=== PATIENT | female | born 1985 | race Caucasian/White ===

== ENCOUNTER 2017-12-27 14:31 | Inpatient (IN) | payer OTHER ==
[~2017-12-27 14:31] MED LIST: BUPIVACAINE HCL/PF 0.5% (5MG/ML) 10 ML VIAL IJ ONE
[2017-12-27 14:35] VITALS: BMI 36.7
--- NOTE | 2017-12-27 14:37 | PDOC ---
Rapid Medical Evaluation Time Seen by Provider: 12/27/17 14:32 Medical Evaluation: Allergies Allergy/AdvReac Type Severity Reaction Status Date / Time No Known Allergies Allergy Verified 05/18/12 19:37 12/27/17 14:32 I have performed a brief in-person evaluation of this patient. The patient presents with a chief complaint of: right lower quadrant pain with fever and change in bowels; constipation Denies nausea, dysuria, vomiting or diarrhea. Sent from urgent care to rule out appendicitis Pertinent physical exam findings: NAD Lungs clear bilaterally heart s1s2 abdomen tenderness to right lower quadrant + hypoactive bowels I have ordered the following: urine pt, labs ordered The patient will proceed to the ED for further evaluation. 12/27/17 14:37 Discharge Disposition - Referrals Referrals: Yolette Atkins MD [Primary Care Provider] - - Patient Instructions - Post Discharge Activity
[2017-12-27 15:21] LABS: BASO % 0.5 % (0-2.0); EOS % 0.2 % (0-4.5); HEMATOCRIT 37.7 % (32.4-45.2); HEMOGLOBIN 12.7 GM/dL (10.7-15.3); LYMPH % 6.5 % (8-40); MCH 29.4 pg (25.7-33.7); MCHC 33.8 g/dl (32.0-36.0); MEAN PLT VOLUME 9.1 fl (7.5-11.1); MONO % 9.7 % (3.8-10.2); NEUT % 83.1 % (42.8-82.8); PLATELET COUNT 295 K/MM3 (134-434); RBC 4.33 M/mm3 (3.60-5.2); RDW 13.7 % (11.6-15.6); WHITE BLOOD COUNT 17.6 K/mm3 (4.0-10.0)
[2017-12-27] MEDS ORDERED: ACETAMINOPHEN 1000 MG/100 ML VIAL (NON FORMULARY) IVPB ONE ×3 (15:36→22:39)
[2017-12-27] MEDS ORDERED: SODIUM CHLORIDE 1,000 ML IV STA (15:36)
[2017-12-27 15:37] LABS: INR 1.18 (0.82-1.09); PROTHROMBIN TIME (PATIENT) 13.3 SEC (9.98-11.88)
[2017-12-27 15:40] LABS: ACTIVATED PTT 29.2 SECONDS (26.9-34.4)
[2017-12-27] MEDS ORDERED: ACETAMINOPHEN INJECTION 100 ML IVPB ONE (15:47)
--- NOTE | 2017-12-27 15:53 | PDOC ---
History of Present Illness <Garrett Greene - Last Filed: 12/27/17 18:03> - History of Present Illness Initial Comments: 12/27/17 15:47 31 F with no PMH presents to ED with RLQ pain and fevers x 2 days. Pt endorses some nausea without vomiting. Denies diarrhea/constipation. Took miralax today without relief of her symptoms. Pt denies vaginal discharge/bleeding. Is not sexually active. Pt states that she has pain in her abdomen when she urinates but denies foul smelling or dark urine. Pt has prior , no other surgeries. <Jerrell Altman - Last Filed: 12/27/17 18:14> - General Chief Complaint: Pain Stated Complaint: r/o appy ABD PAIN Time Seen by Provider: 12/27/17 14:32 Past History <Garrett Greene - Last Filed: 12/27/17 18:03> - Past Medical History COPD: No - Suicide/Smoking/Psychosocial Hx Smoking Status: No Smoking History: Never smoked Number of Cigarettes Smoked Daily: 0 Information on smoking cessation initiated: No Hx Alcohol Use: No Drug/Substance Use Hx: No Substance Use Type: None <Jerrell Altman - Last Filed: 12/27/17 18:14> - Past Medical History Allergies/Adverse Reactions: Allergies Allergy/AdvReac Type Severity Reaction Status Date / Time No Known Allergies Allergy Verified 12/27/17 14:32 Home Medications: Ambulatory Orders NK [No Known Home Medication] 12/27/17 Review of Systems - Review of Systems Comments:: 12/27/17 15:50 "GENERAL/CONSTITUTIONAL: No fever or chills. No weakness. HEAD, EYES, EARS, NOSE AND THROAT: No change in vision. No ear pain or discharge. No sore throat. CARDIOVASCULAR: No chest pain or shortness of breath. RESPIRATORY: No cough, wheezing, or hemoptysis. GASTROINTESTINAL: +RLQ pain, + nausea, no vomiting, diarrhea or constipation. GENITOURINARY: No dysuria, frequency, or change in urination. MUSCULOSKELETAL: No joint or muscle swelling or pain. No neck or back pain. SKIN: No rash NEUROLOGIC: No headache, vertigo, loss of consciousness, or change in strength/ sensation. ENDOCRINE: No increased thirst. No abnormal weight change. HEMATOLOGIC/LYMPHATIC: No anemia, easy bleeding, or history of blood clots. ALLERGIC/IMMUNOLOGIC: No hives or skin allergy. " <Jerrell Altman - Last Filed: 12/27/17 18:14> *Physical Exam - Vital Signs Last Vital Signs Temp Pulse Resp BP Pulse Ox 100 F H 111 H 18 140/79 100 12/27/17 14:33 12/27/17 14:33 12/27/17 14:33 12/27/17 14:33 12/27/17 14:33 <Garrett Greene - Last Filed: 12/27/17 18:03> - Vital Signs Last Vital Signs Temp Pulse Resp BP Pulse Ox 100 F H 111 H 18 140/79 100 12/27/17 14:33 12/27/17 14:33 12/27/17 14:33 12/27/17 14:33 12/27/17 14:33 - Physical Exam Comments: 12/27/17 15:51 "GENERAL: Awake, alert, and fully oriented, in no acute distress HEAD: No signs of trauma EYES: PERRLA, EOMI, sclera anicteric, conjunctiva clear ENT: Auricles normal inspection, hearing grossly normal, nares patent, oropharynx clear without exudates. Moist mucosa NECK: Nontender, no stepoffs, Normal ROM, supple, no lymphadenopathy, JVD, or masses LUNGS: Breath sounds equal, clear to auscultation bilaterally. No wheezes, and no crackles HEART: Regular rate and rhythm, normal S1 and S2, no murmurs, rubs or gallops ABDOMEN: + RLQ tenderness, + rebound, no guarding EXTREMITIES: Normal range of motion, no edema. No clubbing or cyanosis. No cords, erythema, or tenderness NEUROLOGICAL: Cranial nerves II through XII intact. 5/5 strength and sensation in all extremities, Normal speech, normal gait, normal cerebellar function SKIN: Warm, Dry, normal turgor, no rashes or lesions noted. : no CMT, no adnexal masses, no abnormal discharge/bleeding <Jerrell Altman - Last Filed: 12/27/17 18:14> ED Treatment Course - LABORATORY CBC & Chemistry Diagram: 12/27/17 15:15 12/27/17 15:15 - ADDITIONAL ORDERS Additional order review: Laboratory Results 12/27/17 12/27/17 12/27/17 17:49 16:00 15:15 PT with INR INR PTT (Actin FS) Sodium 136 Potassium 4.1 Chloride 101 Carbon Dioxide 23 Anion Gap 12 BUN 8 Creatinine 0.7 Creat Clearance w eGFR > 60 Random Glucose 88 Calcium 9.3 Total Bilirubin 0.6 AST 16 ALT 30 Alkaline Phosphatase 104 Total Protein 8.1 Albumin 3.9 Urine Color Yellow Urine Appearance Clear Urine pH 5.0 Ur Specific [place] 1.024 Urine Protein Negative Urine Glucose (UA) Negative Urine Ketones Trace H Urine Blood 1+ H Urine Nitrite Negative Urine Bilirubin Negative Urine Urobilinogen Negative Ur Leukocyte Esterase Negative Urine HCG, Qual Negative 12/27/17 15:15 PT with INR 13.30 H INR 1.18 H PTT (Actin FS) 29.2 Sodium Potassium Chloride Carbon Dioxide Anion Gap BUN Creatinine Creat Clearance w eGFR Random Glucose Calcium Total Bilirubin AST ALT Alkaline Phosphatase Total Protein Albumin Urine Color Urine Appearance Urine pH Ur Specific [place] Urine Protein Urine Glucose (UA) Urine Ketones Urine Blood Urine Nitrite Urine Bilirubin Urine Urobilinogen Ur Leukocyte Esterase Urine HCG, Qual 12/27/17 15:15 RBC 4.33 MCV 87.0 MCHC 33.8 RDW 13.7 MPV 9.1 Neutrophils % 83.1 H Lymphocytes % 6.5 L Monocytes % 9.7 Eosinophils % 0.2 Basophils % 0.5 - RADIOLOGY Radiograph Interpretation: 12/27/17 18:03 EXAM#: TYPE/EXAM: RESULT: [id number] CT/ABDOMEN PELVIS CT WITH CONTR HISTORY PROVIDED: Right lower quadrant pain. Sequential axial images were obtained from the domes of the diaphragms through the symphysis pubis following the administration of intravenous contrast material. The lung bases are clear. There is a thick-walled tubular structure within the right lower quadrant consistent with an inflamed appendix. There is a moderate degree of inflammatory stranding within the adjacent mesenteric fat. No discrete fluid collection consistent with an abscess is noted. There are some prominent mesenteric lymph nodes in the right lower quadrant. The liver, spleen, pancreas, adrenal glands and kidneys demonstrate no significant abnormalities. The gallbladder is clear. There is no evidence of intra-abdominal or retroperitoneal lymphadenopathy or fluid collections. Examination of the pelvis demonstrates an involuting cyst of the right ovary with a small amount of free fluid within the cul-de-sac. There is no evidence of pelvic masses, fluid collections or lymphadenopathy. There is no evidence of acute bony pathology. IMPRESSION: Findings consistent with acute appendicitis without abscess formation. Clinical correlation and follow-up recommended. Please see above discussion. Reported By: Regan Ramirez MD - Medications Given in the ED: ED Medications Discontinued Medications Generic Name Dose Route Start Last Admin Trade Name Isaías PRN Reason Stop Dose Admin Acetaminophen 1,000 mg 12/27/17 15:36 12/27/17 16:02 Ofirmev Injection - IVPB 12/27/17 15:37 1,000 mg ONCE ONE Administration Sodium Chloride 1,000 mls @ 1,000 mls/hr 12/27/17 15:36 12/27/17 15:45 Normal Saline - IV 12/27/17 16:35 1,000 mls/hr ASDIR STA Administration <Garrett Greene - Last Filed: 12/27/17 18:03> - LABORATORY CBC & Chemistry Diagram: 12/27/17 15:15 12/27/17 15:15 - ADDITIONAL ORDERS Additional order review: Laboratory Results 12/27/17 15:15 PT with INR 13.30 H INR 1.18 H PTT (Actin FS) 29.2 12/27/17 15:15 RBC 4.33 MCV 87.0 MCHC 33.8 RDW 13.7 MPV 9.1 Neutrophils % 83.1 H Lymphocytes % 6.5 L Monocytes % 9.7 Eosinophils % 0.2 Basophils % 0.5 - RADIOLOGY Radiology Studies Ordered: Category Date Time Status ABDOMEN & PELVIS CT WITH CONTR [CT] Stat CT Scan 12/27/17 15:36 Ordered <Ou,Jerrell - Last Filed: 12/27/17 18:14> Medical Decision Making - Medical Decision Making 12/27/17 15:51 31 F with fever and RLQ abdominal pain, concerning for acute appy. Pt also complaining of increased pain with urination. Will check for UTI. - Labs, UA, UPT - CTAP - IVF, tylenol 12/27/17 17:56 CT with acute appy. Dr. Marrero aware, will follow, tentatively plan for OR tomorrow 12/27/17 18:14 Zosyn ordered Pt admitted to hospitalist <Ou,Jerrell - Last Filed: 12/27/17 18:14> *DC/Admit/Observation/Transfer - Attestations Scribe Attestion: 12/27/17 18:04 Documentation prepared by Garrett Greene, acting as medical records coder for Jerrell Altman MD. <Garrett Greene - Last Filed: 12/27/17 18:03> - Discharge Dispostion Admit: Yes - Attestations Physician Attestion: 12/27/17 17:57 I, Dr. Jerrell Altman MD, attest that this document has been prepared under my direction and personally reviewed by me in its entirety. I further attest, that it accurately reflects all work, treatment, procedures and medical decision -making performed by me. <Jerrell Altman - Last Filed: 12/27/17 18:14> Diagnosis at time of Disposition: Acute appendicitis - Referrals Referrals: Yolette Atkins MD [Primary Care Provider] - - Patient Instructions - Post Discharge Activity
[2017-12-27 15:57] LABS: ALBUMIN 3.9 g/dl (3.4-5.0); ALK PHOS 104 U/L (45-117); ANION GAP 12 (8-16); BILIRUBIN,TOTAL 0.6 mg/dL (0.2-1.0); BLOOD UREA NITROGEN 8 mg/dL (7-18); CALCIUM 9.3 mg/dL (8.5-10.1); CHLORIDE 101 mmol/L (98-107); CO2 23 mmol/L (21-32); CREATININE 0.7 mg/dL (0.55-1.02); GLUCOSE,RANDOM 88 mg/dL (74-106); POTASSIUM 4.1 mmol/L (3.5-5.1); SGOT/AST 16 U/L (15-37); SGPT/ALT 30 U/L (12-78); SODIUM 136 mmol/L (136-145); TOT PROT 8.1 g/dl (6.4-8.2)
[2017-12-27 17:56] LABS: URINE APPEARANCE CLEAR; URINE BILIRUBIN NEGATIVE (<2.0 mg/dL); URINE BLOOD 1+ (NEGATIVE); URINE COLOR YELLOW; URINE GLUCOSE (UA) NEGATIVE (NEGATIVE); URINE KETONE TRACE (NEGATIVE); URINE LEUK ESTERASE NEGATIVE (NEGATIVE); URINE NITRITE NEGATIVE (NEGATIVE); URINE PROTEIN NEGATIVE (NEGATIVE); URINE UROBILINOGEN NEGATIVE mg/dL (0.2-1.0)
[2017-12-27] MEDS ORDERED: PIPERACILLIN/TAZOB 4.5 GM 4.5 GM/100 ML BAG IVPB ONE ×2 (17:56→19:06)
[2017-12-27 18:01] LABS: EPI CELLS RARE /HPF (FEW); URINE BACTERIA RARE /hpf (NONE SEEN); URINE MUCUS MODERATE
[2017-12-27] MEDS ORDERED: SODIUM CHLORIDE 1,000 ML IV SCH (18:15)
--- NOTE | 2017-12-27 18:17 | CONSULT ---
Consult Consult Specialty:: general surgery Referred by:: swetha martinez MD Reason for Consultation:: abdominal pain - History of Present Illness Chief Complaint: abdominal pain History of Present Illness: 31 yo female with PMH obesity presents with 2 days of right lower quadrant abdominal pain. She denied nausea and vomiting. She reports some nausea without vomiting. Denies diarrhea/constipation. Took miralax today without relief of her symptoms. Pt denies vaginal discharge/bleeding. Is not sexually active. Pt states that she has pain in her abdomen when she urinates but denies foul smelling or dark urine. Pt has prior , no other surgeries. she denies similar episodes of similar pain. We were asked to assess. - History Source History Provided By: Patient, Medical Record Limitations to Obtaining History: No Limitations - Past Medical History Additional Medical History: obesity - Past Surgical History Past Surgical History: Yes: - Alcohol/Substance Use Hx Alcohol Use: No - Smoking History Smoking history: Never smoked Aproximately how many cigarettes per day: 0 - Social History Usual Living Arrangement: With Spouse History of Recent Travel: No Home Medications - Allergies Allergies/Adverse Reactions: Allergies Allergy/AdvReac Type Severity Reaction Status Date / Time No Known Allergies Allergy Verified 12/27/17 14:32 - Home Medications Home Medications: Ambulatory Orders NK [No Known Home Medication] 12/27/17 Review of Systems - Review of Systems Constitutional: denies: Chills, Fever, Unintentional Wgt. Loss Eyes: denies: Blind Spots, Recent Change in Vision HENT: denies: Difficult Swallowing, Throat Pain Neck: denies: Pain on Movement, Tenderness Cardiovascular: denies: Chest Pain, Palpitations Respiratory: denies: Cough, SOB Gastrointestinal: reports: Abdominal Pain. denies: Diarrhea, Indigestion, Vomiting Genitourinary: denies: Discharge, Dysuria Musculoskeletal: denies: Muscle Pain, Muscle Weakness Integumentary: denies: Lesions, Lump, Rash Neurological: denies: Seizure, Syncope Endocrine: denies: Unexplained Weight Gain, Unexplained Weight Loss Hematology/Lymphatic: denies: Easily Bruised, Excessive Bleeding Psychiatric: denies: Anxiety, Depression Physical Exam Vital Signs: Vital Signs Temperature 100 F H 12/27/17 14:33 Pulse Rate 111 H 12/27/17 14:33 Respiratory Rate 18 12/27/17 14:33 Blood Pressure 140/79 12/27/17 14:33 O2 Sat by Pulse Oximetry (%) 100 12/27/17 14:33 Vital Signs Period Temp Pulse Resp BP Sys/Harris Pulse Ox Last 24 Hr 100 F 111 18 140/79 100 Constitutional: Yes: Well Nourished, No Distress, Calm, Obese Eyes: Yes: Conjunctiva Clear, EOM Intact HENT: Yes: Atraumatic, Normocephalic Neck: Yes: Supple, Trachea Midline Cardiovascular: Yes: Regular Rate and Rhythm, S1, S2. No: Murmur Respiratory: Yes: Regular, CTA Bilaterally Gastrointestinal: Yes: Normal Bowel Sounds, Soft, Abdomen, Obese, Tenderness ( tender in RLQ, will some voluntary guarding and localized rebound), Tenderness, Rebound. No: Hernia, Vomiting ...Rectal Exam: Yes: Sphincter Tone Normal. No: Mass Renal/: No: CVA Tenderness - Left, CVA Tenderness - Right Breast(s): No: Nipple Inversion, Skin Changes Musculoskeletal: No: Muscle Pain, Muscle Weakness Extremities: No: Cool, Cyanosis Edema: No Peripheral Pulses WNL: Yes Integumentary: No: Jaundice, Rash Neurological: Yes: Alert, Oriented Psychiatric: Yes: Alert, Oriented Labs: CBC, BMP 12/27/17 15:15 12/27/17 15:15 Imaging - Results Cat Scan: Report Reviewed, Image Reviewed (acute appendicitis) Problem List - Problems (1) Obesity (BMI 30-39.9) Assessment/Plan: NPO and IVF hydration empiric IV antibiotics adequate analgesia Plan for OR for Laparoscopic Appendectomy - Discussed with patient risks, benefits and alternatives of laparoscopic possible open appendectomy, including but not limited to bleeding, infection, injury to adjacent structures, leak or injury, intraabdominal abscess, need for further procedures, ; alternatives include antibiotics, delayed or no surgery - risks of this include failure of nonoperative therapy, perforation, sepsis, recurrence, . Patient desires to proceed with operation - will take to OR for above. Informed consent signed for same. Code(s): E66.9 - OBESITY, UNSPECIFIED (2) Leukocytosis (leucocytosis) Code(s): D72.829 - ELEVATED WHITE BLOOD CELL COUNT, UNSPECIFIED Qualifiers: Leukocytosis type: lymphocytosis Qualified Code(s): D72.820 - Lymphocytosis (symptomatic) (3) Abdominal pain in female Code(s): R10.9 - UNSPECIFIED ABDOMINAL PAIN (4) Acute appendicitis Code(s): K35.80 - UNSPECIFIED ACUTE APPENDICITIS Qualifiers: Acute appendicitis type: with localized peritonitis Qualified Code(s): K35.3 - Acute appendicitis with localized peritonitis
--- NOTE | 2017-12-27 18:25 | OP ---
Operative Note - Note: Operative Date: 12/27/17 Pre-Operative Diagnosis: acute appendicitis with localized peritonitis Operation: laparoscopic appendectomy Findings: inflamed appendix RLQ with matted omentum. infected peel debrided from sidewall Post-Operative Diagnosis: Same as Pre-op Surgeon: Paul Marrero Anesthesiologist/REGISTERED RESPIRATORY TECHNICIAN: Montrell Robledo Anesthesia: General, Local (8ml 0.5% marcaine ) Specimens Removed: appendix Estimated Blood Loss (mls): 25 Drains, Volume Out (mls): 400 (vincent (removed)) Fluid Volume Replaced (mls): 1,200 Operative Report Dictated: Yes
[2017-12-27] MEDS ORDERED: morphine SULFATE 4 MG/ML VIAL IVPUSH PRN ×2 (18:30→22:39)
[2017-12-27] MEDS ORDERED: LACTATED RINGERS SOLUTION 1,000 ML/1,000 ML INFUS.BAG IV SCH (18:30)
[2017-12-27] MEDS ORDERED: BENZOIN/ALOE VERA/STORAX/TOLU 58 ML BOTTLE ONE (19:27)
[2017-12-27] MEDS ORDERED: BUPIVACAINE HCL/PF 0.5% (5MG/ML) 10 ML VIAL ONE (19:27)
[2017-12-27] MEDS ORDERED: MIDAZOLAM HCL 2 MG/2 ML SINGLE DOSE VIAL ONE (19:59)
[2017-12-27] MEDS ORDERED: SUCCINYLCHOLINE CHLORIDE 200 MG/10 ML VIAL ONE (19:59)
[2017-12-27] MEDS ORDERED: PROPOFOL 20 ML ONE (19:59)
[2017-12-27] MEDS ORDERED: ROCURONIUM BROMIDE 50 MG/5 ML VIAL ONE (19:59)
[2017-12-27] MEDS ORDERED: SODIUM CHLORIDE 0.9% P/F 10 ML VIAL IJ ONE (20:02)
[2017-12-27] MEDS ORDERED: KETOROLAC TROMETHAMINE 30 MG/1 ML VIAL ONE (20:02)
[2017-12-27] MEDS ORDERED: DEXAMETHASONE SOD PHOSPHATE 4 MG/1 ML VIAL ONE (20:02)
[2017-12-27] MEDS ORDERED: LIDOCAINE HCL/PF 2% SDV 5ML VIAL ONE (20:02)
--- NOTE | 2017-12-27 20:59 | HP ---
CHIEF COMPLAINT: RLQ pain x2 days PCP: Dr. Atkins HISTORY OF PRESENT ILLNESS: 31 yo w/ no pmh presenting to ED with 2 days of abdominal distension and pain, localizing to RLQ yesterday, in the setting of subjective fevers for last two days. Pt endorses constipation and decrease appetite for over past two days, took miralax today with no resolution of symptoms. Endorses occasional bout of nausea, but no episode of emesis. Denies any chills, EGAN, throat pain, nasal congestion, sinus pain, cp, sob, cough, rashes, peripheral edema, hematochezia, melena, diarrhea, hematuria. Endorses occasional pain in abdomen with straining during urination. No prior GI symptoms or hx of IBD, SBO, constipation. ER course was notable for: (1)WBC 17.6, temp 100 (2)CT abdomen/pelvis + for appendicitis (3)General surgery consulted Recent Travel: no PAST MEDICAL HISTORY: None PAST SURGICAL HISTORY: Prior C section Social History: Smoking: no Alcohol: no Drugs: no Family History: noncontributory Allergies No Known Allergies Allergy (Verified 12/27/17 14:32) HOME MEDICATIONS: Home Medications Medication Instructions Recorded NK [No Known Home Medication] 12/27/17 REVIEW OF SYSTEMS CONSTITUTIONAL: fever, loss of appetite, Absent: chills, diaphoresis, generalized weakness, malaise, weight change HEENT: Absent: rhinorrhea, nasal congestion, throat pain, throat swelling, difficulty swallowing, mouth swelling, ear pain, eye pain, visual changes CARDIOVASCULAR: Absent: chest pain, syncope, palpitations, irregular heart rate, lightheadedness , peripheral edema RESPIRATORY: Absent: cough, shortness of breath, dyspnea with exertion, orthopnea, wheezing, stridor, hemoptysis GASTROINTESTINAL: abdominal pain, abdominal distension, constipation, Absent: nausea, vomiting, diarrhea, melena, hematochezia GENITOURINARY: Absent: dysuria, frequency, urgency, hesitancy, hematuria, flank pain, genital pain MUSCULOSKELETAL: Absent: myalgia, arthralgia, joint swelling, back pain, neck pain ENDOCRINE: Absent: unexplained weight gain, unexplained weight loss, heat intolerance, cold intolerance PHYSICAL EXAMINATION Vital Signs - 24 hr Intake & Output 12/25/17 12/26/17 12/27/17 12/28/17 23:59 23:59 23:59 23:59 Intake Total 2450 Output Total 425 Balance 2024 Weight 97.069 kg 12/27/17 12/27/17 14:33 19:30 Temperature 100 F H 98.4 F Pulse Rate 111 H Pulse Rate [ 97 H Apical] Respiratory 18 16 Rate Blood Pressure 140/79 Blood Pressure 114/75 [Right Arm] O2 Sat by Pulse 100 99 Oximetry (%) GENERAL: Young woman, a&ox3, in NAD HEAD: Normal with no signs of trauma. EYES: Pupils equal, round and reactive to light, extraocular movements intact, sclera anicteric, conjunctiva clear. No lid lag. EARS, NOSE, THROAT: Ears normal, nares patent, oropharynx clear without exudates. Moist mucous membranes. NECK: Normal range of motion, supple without lymphadenopathy, JVD, or masses. LUNGS: Breath sounds equal, clear to auscultation bilaterally. No wheezes, and no crackles. No accessory muscle use. HEART: Regular rate and rhythm, normal S1 and S2 without murmur, rub or gallop. ABDOMEN: Soft, nontender, not distended, normoactive bowel sounds, no guarding, no rebound, no masses. No hepatomegaly or splenomegaly. MUSCULOSKELETAL: Normal range of motion at all joints. No bony deformities or tenderness. No CVA tenderness. UPPER EXTREMITIES: 2+ pulses, warm, well-perfused. No cyanosis. No clubbing. No peripheral edema. LOWER EXTREMITIES: 2+ pulses, warm, well-perfused. No calf tenderness. No peripheral edema. NEUROLOGICAL: Cranial nerves II-XII intact. Normal speech. Normal gait. PSYCHIATRIC: Cooperative. Good eye contact. Appropriate mood and affect. SKIN: Warm, dry, normal turgor, no rashes or lesions noted, normal capillary refill. Laboratory Results - last 24 hr CBC, BMP 12/27/17 15:15 12/27/17 15:15 12/27/17 12/27/17 12/27/17 15:15 15:15 15:15 WBC 17.6 H RBC 4.33 Hgb 12.7 Hct 37.7 MCV 87.0 MCH 29.4 MCHC 33.8 RDW 13.7 Plt Count 295 MPV 9.1 Neutrophils % 83.1 H Lymphocytes % 6.5 L Monocytes % 9.7 Eosinophils % 0.2 Basophils % 0.5 PT with INR 13.30 H INR 1.18 H PTT (Actin FS) 29.2 Sodium 136 Potassium 4.1 Chloride 101 Carbon Dioxide 23 Anion Gap 12 BUN 8 Creatinine 0.7 Creat Clearance w eGFR > 60 Random Glucose 88 Calcium 9.3 Total Bilirubin 0.6 AST 16 ALT 30 Alkaline Phosphatase 104 Total Protein 8.1 Albumin 3.9 Lipase Urine Color Urine Appearance Urine pH Ur Specific [place] Urine Protein Urine Glucose (UA) Urine Ketones Urine Blood Urine Nitrite Urine Bilirubin Urine Urobilinogen Ur Leukocyte Esterase Urine WBC (Auto) Urine RBC (Auto) Ur Epithelial Cells Urine Bacteria Urine Mucus Urine HCG, Qual 12/27/17 12/27/17 12/27/17 16:00 17:44 17:49 WBC RBC Hgb Hct MCV MCH MCHC RDW Plt Count MPV Neutrophils % Lymphocytes % Monocytes % Eosinophils % Basophils % PT with INR INR PTT (Actin FS) Sodium Potassium Chloride Carbon Dioxide Anion Gap BUN Creatinine Creat Clearance w eGFR Random Glucose Calcium Total Bilirubin AST ALT Alkaline Phosphatase Total Protein Albumin Lipase 80 Urine Color Yellow Urine Appearance Clear Urine pH 5.0 Ur Specific [place] 1.024 Urine Protein Negative Urine Glucose (UA) Negative Urine Ketones Trace H Urine Blood 1+ H Urine Nitrite Negative Urine Bilirubin Negative Urine Urobilinogen Negative Ur Leukocyte Esterase Negative Urine WBC (Auto) 93 Urine RBC (Auto) 17 Ur Epithelial Cells Rare Urine Bacteria Rare Urine Mucus Moderate Urine HCG, Qual Negative urine culture pending CT abdomen/pelvis w/ contrast 12/27 - IMPRESSION: Findings consistent with acute appendicitis without abscess formation. Clinical correlation and follow-up recommended. Please see above discussion. ASSESSMENT/PLAN: 31 yo w/ no pmh presenting to ED with 2 days of abdominal distension and pain, localizing to RLQ yesterday, in the setting of subjective fevers for last two days, now with CT-confirmed appendicitis #Acute appendicitis - confirmed on CT scan - NPO -> clears after surgery - Pain control -> tylenol, morphine - IVFs - General surgery consulted - pt for lap ross w/ dr. sharpe this evening - post-op care per surgical team - changan for N/V - f/u op report regarding intra-abdominal involvement - Trend fever, WBC curve - Consider abx coverage post-op #Constipation - Senna, colace - monitor on PO feeds PPX EAM FEN LR Daily lytes Clears post-op Plan discussed with attending, Dr. Willam Pascual, PGY1 Visit type - Emergency Visit Emergency Visit: Yes ED Registration Date: 12/27/17 Care time: The patient presented to the Emergency Department on the above date and was hospitalized for further evaluation of their emergent condition. - New Patient This patient is new to me today: Yes Date on this admission: 12/28/17 - Critical Care Critical Care patient: No Hospitalist Screening - Colonoscopy Questionnaire Colonoscopy Questionnaire: Colonoscopy Questionnaire - Patient: 50 - 75 years old and never had a screening colonoscopy: Unknown History of colon or rectal polyps, or CA: Unknown History of IBD, Crohn's disease or UC: Unknown History of abdominal radiation therapy as a child: Unknown - Relative: 1 with colon or rectal CA, or polyps at age 60 or younger: Unknown Colon or rectal CA diagnosed at age 45 or younger: Unknown Multiple relatives with colon or rectal CA: Unknown - Outcome: Screening Result: Negative Screen
[2017-12-27] MEDS ORDERED: NEOSTIGMINE METHYLSULFATE 0.5 MG/ML - 10 ML MDV ONE (21:16)
[2017-12-27] MEDS ORDERED: GLYCOPYRROLATE 0.2 MG/1 ML VIAL ONE (21:16)
[2017-12-27] MEDS ORDERED: BUPIVACAINE HCL/PF 0.5% (5MG/ML) 10 ML VIAL IJ ONE (21:30)
[2017-12-27] MEDS ORDERED: ONDANSETRON 4 MG/2 ML VIAL IVPUSH PRN (21:52)
[2017-12-27] MEDS ORDERED: KETOROLAC TROMETHAMINE 30 MG/1 ML VIAL IVPUSH ONE ×2 (21:52→22:39)
[2017-12-27] MEDS: LACTATED RINGERS SOLUTION 1,000 ML/1,000 ML INFUS.BAG IV SCH (23:00)
[2017-12-28] MEDS ORDERED: ONDANSETRON 4 MG/2 ML VIAL IVPUSH PRN (00:17)
--- NOTE | 2017-12-28 02:00 | PN ---
Teaching Attending Note Name of Resident: Zak Pascual ATTENDING PHYSICIAN STATEMENT I saw and evaluated the patient. I reviewed the resident's note and discussed the case with the resident. I agree with the resident's findings and plan as documented. SUBJECTIVE: 31F with RLQ abd pain found to have acute appendicitis now s/p lab appy she is resting comfortably without complaints OBJECTIVE: NAD AAOx3 Abd soft, NTND, laparscopic incisions dressed WBC 17.5 ASSESSMENT AND PLAN: 31F presented with acute appendicitis now s/p lap Appy pain control IVF start CLD in morning Abx postop usually not needed if uncomplicated, follow up with surgery regarding this
--- NOTE | 2017-12-28 02:05 | PN ---
Progress Note, Physician Chief Complaint: abdominal pain History of Present Illness: 31 yo female with PMH obesity presents with 2 days of right lower quadrant abdominal pain. s/p laparoscopic appendectomy, no acute events overnight, febrile low grade 100.2 - Current Medication List Current Medications: Active Medications Acetaminophen (Ofirmev Injection -) 1,000 mg IVPB Q6H PRN PRN Reason: PAIN LEVEL 1-5 Fentanyl (Sublimaze Injection -) 50 mcg IVPUSH [id number] PRN PRN Reason: PAIN-PACU ORDER X 4 DOSES ONLY Lactated Ringer's (Lactated Ringers Solution) 1,000 ml in 1,000 mls @ 125 mls/ hr IV ASDIR LUZ Last Admin: 12/27/17 23:00 Dose: 0 mls Morphine Sulfate (Morphine Sulfate) 4 mg IVPUSH Q6H PRN PRN Reason: PAIN LEVEL 6-10 Ondansetron HCl (Zofran Injection) 4 mg IVPUSH Q4H PRN PRN Reason: NAUSEA AND/OR VOMITING Piperacillin Sod/Tazobactam Sod (Zosyn 3.375gm Ivpb (Pre-Docked)) 3.375 gm IVPB ONCE ONE PRN Reason: Protocol Stop: 12/28/17 06:01 - Objective Vital Signs: Vital Signs Temperature 97.9 F 12/27/17 23:35 Pulse Rate 82 12/27/17 23:35 Respiratory Rate 18 12/27/17 23:35 Blood Pressure 98/54 12/27/17 23:35 O2 Sat by Pulse Oximetry (%) 97 12/27/17 23:35 Vital Signs Period Temp Pulse Resp BP Sys/Harris Pulse Ox Last 24 Hr 97.9 F-100.2 F 66-111 16-22 95-140/47-79 94-100 Constitutional: Yes: No Distress, Calm, Obese Eyes: Yes: Conjunctiva Clear, EOM Intact HENT: Yes: Atraumatic, Normocephalic Neck: Yes: Supple, Trachea Midline Cardiovascular: Yes: Regular Rate and Rhythm, S1, S2. No: Murmur Respiratory: Yes: Regular, CTA Bilaterally Gastrointestinal: Yes: Normal Bowel Sounds, Soft, Tenderness (periumbilical) ...Rectal Exam: Yes: Deferred Genitourinary: No: CVA Tenderness - Left, CVA Tenderness - Right Extremities: No: Cool, Cyanosis Wound/Incision: Yes: Clean/Dry, Dressing Dry and Intact Neurological: Yes: Alert, Oriented Psychiatric: Yes: Alert, Oriented Labs: CBC, BMP 12/27/17 15:15 12/27/17 15:15 INR, PTT INR 1.18 (0.82-1.09) H 12/27/17 15:15 Problem List - Problems (1) Obesity (BMI 30-39.9) Assessment/Plan: 31 yo female POD#1 s/p laparoscopic appendectomy, given signs of early bacterial translocation intraoperatively she should be treated as a perforation with a few days of IV antibiotics at least at the discretion of ID and primary team. Vegan diet as tolerated ID consult for continued antibiotics - Dr. Gold (called) f/u labs continue empiric IV antibiotics adequate analgesia OOB and ambulate incentive spirometry Code(s): E66.9 - OBESITY, UNSPECIFIED (2) Leukocytosis (leucocytosis) Code(s): D72.829 - ELEVATED WHITE BLOOD CELL COUNT, UNSPECIFIED Qualifiers: Leukocytosis type: lymphocytosis Qualified Code(s): D72.820 - Lymphocytosis (symptomatic) (3) Abdominal pain in female Code(s): R10.9 - UNSPECIFIED ABDOMINAL PAIN (4) Acute appendicitis Code(s): K35.80 - UNSPECIFIED ACUTE APPENDICITIS Qualifiers: Acute appendicitis type: with localized peritonitis Qualified Code(s): K35.3 - Acute appendicitis with localized peritonitis
[2017-12-28] MEDS ORDERED: PIPERACILLIN/TAZOB 3.375 GM/50 ML PRE-DOCKED IVPB ONE ×2 (06:00)
[2017-12-28] MEDS: LACTATED RINGERS SOLUTION 1,000 ML/1,000 ML INFUS.BAG IV SCH (06:15)
[2017-12-28] MEDS ORDERED: DOCUSATE NA 100 MG/10 ML UNIT-DOSE CUPS PO PRN (06:26)
[2017-12-28] MEDS: ACETAMINOPHEN 1000 MG/100 ML VIAL (NON FORMULARY) IVPB PRN ×2 (06:38→21:26)
[2017-12-28 07:36] LABS: BASO % 0.1 % (0-2.0); HEMATOCRIT 32.3 % (32.4-45.2); HEMOGLOBIN 10.9 GM/dL (10.7-15.3); LYMPH % 3.1 % (8-40); MCH 29.6 pg (25.7-33.7); MCHC 33.7 g/dl (32.0-36.0); MEAN CELL VOLUME 87.9 fl (80-96); MEAN PLT VOLUME 9.3 fl (7.5-11.1); MONO % 4.4 % (3.8-10.2); NEUT % 92.4 % (42.8-82.8); PLATELET COUNT 231 K/MM3 (134-434); RBC 3.67 M/mm3 (3.60-5.2); RDW 13.4 % (11.6-15.6); WHITE BLOOD COUNT 14.8 K/mm3 (4.0-10.0)
[2017-12-28 07:46] LABS: ANION GAP 12 (8-16); BLOOD UREA NITROGEN 9 mg/dL (7-18); CALCIUM 8.6 mg/dL (8.5-10.1); CHLORIDE 105 mmol/L (98-107); CO2 22 mmol/L (21-32); GLUCOSE,RANDOM 131 mg/dL (74-106); MAGNESIUM 2.4 mg/dL (1.8-2.4); PHOSPHOROUS 3.9 mg/dL (2.5-4.9); POTASSIUM 4.2 mmol/L (3.5-5.1); SGOT/AST 12 U/L (15-37); SGPT/ALT 23 U/L (12-78); SODIUM 139 mmol/L (136-145)
[2017-12-28 07:48] LABS: ALK PHOS 79 U/L (45-117); BILIRUBIN,TOTAL 0.7 mg/dL (0.2-1.0); CREATININE 0.6 mg/dL (0.55-1.02); TOT PROT 6.3 g/dl (6.4-8.2)
[2017-12-28 07:54] LABS: INR 1.24 (0.82-1.09)
--- NOTE | 2017-12-28 07:56 | PN ---
Progress Note (short form) - Note Progress Note: Anesthesia Post op Pt seen and examined S:alert and awake O: Vital Signs Temperature 97.3 F L 12/28/17 06:07 Pulse Rate 64 12/28/17 06:07 Respiratory Rate 20 12/28/17 06:07 Blood Pressure 97/47 12/28/17 06:07 O2 Sat by Pulse Oximetry (%) 97 12/27/17 23:35 CBC, BMP 12/28/17 06:00 A/P Current Active Problems Abdominal pain in female (Acute) Acute appendicitis (Acute) Leukocytosis (leucocytosis) (Acute) Obesity (BMI 30-39.9) (Acute) s/p lap appy Doing well post op Continue current care Mark Oliva MD
--- NOTE | 2017-12-28 08:15 | PN ---
Progress Note (short form) - Note Progress Note: have some mild pain in RLQ but significantly improved since yesterday. last BM yesterday. has not eaten yet. denies CP, SOB, fever, chills, N/V/C/D. no flatus or BM Current Medications Generic Name Dose Route Start Last Admin Trade Name Freq PRN Reason Stop Dose Admin Acetaminophen 1,000 mg 12/28/17 00:16 12/28/17 06:38 Ofirmev Injection - IVPB 1,000 mg Q6H PRN Administration PAIN LEVEL 1-5 Docusate Sodium 100 mg 12/28/17 06:26 Colace Liquid - PO DAILY PRN CONSTIPATION Fentanyl 50 mcg 12/27/17 22:39 Sublimaze Injection - IVPUSH [id number] PRN PAIN-PACU ORDER X 4 DOSES ONLY Lactated Ringer's 1,000 ml in 1,000 mls @ 125 mls/hr 12/27/17 22:39 12/28/17 06:15 Lactated Ringers Solution IV 125 mls/hr ASDIR LUZ Administration Morphine Sulfate 4 mg 12/27/17 22:39 Morphine Sulfate IVPUSH Q6H PRN PAIN LEVEL 6-10 Ondansetron HCl 4 mg 12/28/17 00:17 Zofran Injection IVPUSH Q4H PRN NAUSEA AND/OR VOMITING Last Vital Signs Temp Pulse Resp BP Pulse Ox 97.3 F L 64 20 97/47 97 12/28/17 06:07 12/28/17 06:07 12/28/17 06:07 12/28/17 06:07 12/27/17 23:35 General NAD CV S1 s2 RRR no murmur/rub/gallop Lungs CTA B/L no wheezing/rales/rhonchi Abdomen soft +RLQ tenderness surgical incision with bandages c/d/i. obese Extremities no pedal edema CBCD WBC 14.8 K/mm3 (4.0-10.0) H 12/28/17 06:00 RBC 3.67 M/mm3 (3.60-5.2) 12/28/17 06:00 Hgb 10.9 GM/dL (10.7-15.3) D 12/28/17 06:00 Hct 32.3 % (32.4-45.2) L 12/28/17 06:00 MCV 87.9 fl (80-96) 12/28/17 06:00 MCHC 33.7 g/dl (32.0-36.0) 12/28/17 06:00 RDW 13.4 % (11.6-15.6) 12/28/17 06:00 Plt Count 231 K/MM3 (134-434) D 12/28/17 06:00 MPV 9.3 fl (7.5-11.1) 12/28/17 06:00 CMP Sodium 139 mmol/L (136-145) 12/28/17 06:00 Potassium 4.2 mmol/L (3.5-5.1) 12/28/17 06:00 Chloride 105 mmol/L (98-107) 12/28/17 06:00 Carbon Dioxide 22 mmol/L (21-32) 12/28/17 06:00 Anion Gap 12 (8-16) 12/28/17 06:00 BUN 9 mg/dL (7-18) 12/28/17 06:00 Creatinine 0.6 mg/dL (0.55-1.02) 12/28/17 06:00 Creat Clearance w eGFR > 60 (>60) 12/28/17 06:00 Calcium 8.6 mg/dL (8.5-10.1) 12/28/17 06:00 Total Bilirubin 0.7 mg/dL (0.2-1.0) 12/28/17 06:00 AST 12 U/L (15-37) L 12/28/17 06:00 ALT 23 U/L (12-78) 12/28/17 06:00 Alkaline Phosphatase 79 U/L (45-117) 12/28/17 06:00 Total Protein 6.3 g/dl (6.4-8.2) L 12/28/17 06:00 Albumin 3.0 g/dl (3.4-5.0) L 12/28/17 06:00 A/P 31 yo F with no PMH presented to the ER wtih RLQ pain and found to have acute appendicitis 1. Sepsis due to acute appendicitis-with tachycardia and leukoctyosis. s/p Lap appendectomy 12/27. appendix was not perforated however found to have matted omentum and fixated to sidewall.will treat as such it might have perforated. Stat BCx. bolus 2L NS. received Zosyn yesterday will cont. ID consulted. Surgery on board. pain and nausea control 2. Constipation- BM yesterday prior to arrival. monitor for BM. stool softener as needed 3. Morbid obesity- lifestyle modifications. goal of 1lb per week weight loss. bariatric referal 4. DVT ppx- will start lovenox Visit type - Emergency Visit Emergency Visit: Yes ED Registration Date: 12/27/17 Care time: The patient presented to the Emergency Department on the above date and was hospitalized for further evaluation of their emergent condition. - New Patient This patient is new to me today: Yes Date on this admission: 12/28/17 - Critical Care Critical Care patient: No - Discharge Referral Referred to [facility] No
[2017-12-28] MEDS: SODIUM CHLORIDE 1,000 ML IV SCH ×2 (09:16→10:18)
[2017-12-28] MEDS: ENOXAPARIN NA (PORCINE) 40 MG/0.4 ML DISP.SYRIN SQ SCH ×2 (09:16→09:28)
[2017-12-28] MEDS ORDERED: PIPERACIL/TAZOB 3.375 GM 3.375 GM/50 ML PREMIX IVPB SCH (10:00)
[2017-12-28] MEDS ORDERED: PIPERACILLIN/TAZOB 3.375 GM 3.375 GM in DEXTROSE 5%-WATER - 50 ML IVPB SCH (10:00)
--- NOTE | 2017-12-28 12:27 | CON.ID ---
Consult Consult Specialty:: infectious diseases Referred by:: Reason for Consultation:: leukocytosis,appendicitis - History of Present Illness History of Present Illness: 31 yo w/ no pmh admitted because of 2 days of abdominal distension and pain, localizing to RLQ associated with pain she also ahd fevers patient came to the hospital and was found to have appendicitis and patient was taken to the operating room and patient had appendectomy done currently patient doing well still ahs high wbc operative note noted only c/o of pain at the operated site - History Source History Provided By: Patient Limitations to Obtaining History: No Limitations - Past Medical History Additional Medical History: obesity - Past Surgical History Past Surgical History: Yes: - Alcohol/Substance Use Hx Alcohol Use: No - Smoking History Smoking history: Never smoked Aproximately how many cigarettes per day: 0 - Social History Usual Living Arrangement: With Spouse History of Recent Travel: No Home Medications - Allergies Allergies/Adverse Reactions: Allergies Allergy/AdvReac Type Severity Reaction Status Date / Time No Known Allergies Allergy Verified 12/27/17 14:32 - Home Medications Home Medications: Ambulatory Orders NK [No Known Home Medication] 12/27/17 Review of Systems - Review of Systems Constitutional: reports: Fever Eyes: reports: No Symptoms HENT: reports: No Symptoms Neck: reports: No Symptoms Cardiovascular: reports: No Symptoms Respiratory: reports: No Symptoms Gastrointestinal: reports: Abdominal Pain Genitourinary: reports: No Symptoms Musculoskeletal: reports: No Symptoms Integumentary: reports: No Symptoms Neurological: reports: No Symptoms Endocrine: reports: No Symptoms Hematology/Lymphatic: reports: No Symptoms Psychiatric: reports: No Symptoms Physical Exam Vital Signs: Vital Signs Temperature 97.3 F L 12/28/17 06:07 Pulse Rate 64 12/28/17 06:07 Respiratory Rate 20 12/28/17 06:07 Blood Pressure 97/47 12/28/17 06:07 O2 Sat by Pulse Oximetry (%) 97 12/27/17 23:35 Constitutional: Yes: Well Nourished, No Distress, Calm Eyes: Yes: Conjunctiva Clear Neck: Yes: Supple, Trachea Midline Cardiovascular: Yes: Regular Rate and Rhythm Respiratory: Yes: Regular, CTA Bilaterally Gastrointestinal: Yes: Normal Bowel Sounds, Soft Musculoskeletal: Yes: WNL Extremities: Yes: WNL Wound/Incision: Yes: Dressing Dry and Intact Neurological: Yes: Alert, Oriented Psychiatric: Yes: Alert, Oriented Labs: CBC, BMP 12/28/17 06:00 12/28/17 06:00 Imaging - Results Cat Scan: Report Reviewed, Image Reviewed Assessment/Plan Problem List - Problems (1) Obesity (BMI 30-39.9) Code(s): E66.9 - OBESITY, UNSPECIFIED (2) Leukocytosis (leucocytosis) Code(s): D72.829 - ELEVATED WHITE BLOOD CELL COUNT, UNSPECIFIED Qualifiers: Qualified Code(s): D72.820 - Lymphocytosis (symptomatic) (3) Abdominal pain in female Code(s): R10.9 - UNSPECIFIED ABDOMINAL PAIN (4) Acute appendicitis Code(s): K35.80 - UNSPECIFIED ACUTE APPENDICITIS Qualifiers: Qualified Code(s): K35.3 - Acute appendicitis with localized peritonitis plan continue iv abx monitor wbc hydration rest as per surgery await for all the results
[2017-12-28] MEDS ORDERED: PIPERACILLIN/TAZOB 3.375 GM 50 ML IVPB SCH (18:00)
[2017-12-28] MEDS ORDERED: PT OWN MED DRAWER 7, Y5N ONE (18:12)
[2017-12-28] MEDS: PIPERACILLIN/TAZOB 3.375 GM 3.375 GM in DEXTROSE 5%-WATER - 50 ML IVPB SCH (18:19)
[2017-12-29] MEDS: PIPERACILLIN/TAZOB 3.375 GM 3.375 GM in DEXTROSE 5%-WATER - 50 ML IVPB SCH ×3 (01:07→18:42)
[2017-12-29 08:27] LABS: BASO % 0.5 % (0-2.0); EOS % 0.3 % (0-4.5); HEMATOCRIT 30.4 % (32.4-45.2); HEMOGLOBIN 10.1 GM/dL (10.7-15.3); LYMPH % 12.4 % (8-40); MCH 29.5 pg (25.7-33.7); MCHC 33.4 g/dl (32.0-36.0); MEAN CELL VOLUME 88.5 fl (80-96); MEAN PLT VOLUME 9.3 fl (7.5-11.1); MONO % 6.9 % (3.8-10.2); NEUT % 79.9 % (42.8-82.8); PLATELET COUNT 272 K/MM3 (134-434); RBC 3.44 M/mm3 (3.60-5.2); RDW 13.5 % (11.6-15.6); WHITE BLOOD COUNT 12.5 K/mm3 (4.0-10.0)
[2017-12-29] MEDS ORDERED: PT OWN MED DRAWER 7, Y5N ONE ×2 (10:57→18:38)
[2017-12-29] MEDS: ENOXAPARIN NA (PORCINE) 40 MG/0.4 ML DISP.SYRIN SQ SCH (11:03)
--- NOTE | 2017-12-29 12:10 | PN ---
Progress Note, Physician History of Present Illness: patient doing well no new issues wbc still high - Current Medication List Current Medications: Active Medications Acetaminophen (Ofirmev Injection -) 1,000 mg IVPB Q6H PRN PRN Reason: PAIN LEVEL 1-5 Last Admin: 12/28/17 21:26 Dose: 1,000 mg Docusate Sodium (Colace Liquid -) 100 mg PO DAILY PRN PRN Reason: CONSTIPATION Enoxaparin Sodium (Lovenox -) 40 mg SQ DAILY [facility] Last Admin: 12/29/17 11:03 Dose: Not Given Fentanyl (Sublimaze Injection -) 50 mcg IVPUSH [id number] PRN PRN Reason: PAIN-PACU ORDER X 4 DOSES ONLY Piperacillin Sod/Tazobactam (Sod 3.375 gm/ Dextrose) 50 mls @ 100 mls/hr IVPB Q8H-IV LUZ Last Admin: 12/29/17 11:03 Dose: 100 mls/hr Morphine Sulfate (Morphine Sulfate) 4 mg IVPUSH Q6H PRN PRN Reason: PAIN LEVEL 6-10 Ondansetron HCl (Zofran Injection) 4 mg IVPUSH Q4H PRN PRN Reason: NAUSEA AND/OR VOMITING - Objective Vital Signs: Vital Signs Temperature 98.4 F 12/29/17 06:00 Pulse Rate 60 12/29/17 06:00 Respiratory Rate 20 12/29/17 06:00 Blood Pressure 104/62 12/29/17 06:00 O2 Sat by Pulse Oximetry (%) 98 12/28/17 21:00 Constitutional: Yes: No Distress, Calm Cardiovascular: Yes: Regular Rate and Rhythm Respiratory: Yes: Regular, CTA Bilaterally Gastrointestinal: Yes: Normal Bowel Sounds, Soft Musculoskeletal: Yes: WNL Extremities: Yes: WNL Neurological: Yes: Alert, Oriented Psychiatric: Yes: Alert, Oriented Labs: CBC, BMP 12/29/17 06:30 12/28/17 06:00 INR, PTT INR 1.24 (0.82-1.09) H 12/28/17 06:00 Assessment/Plan Problem List - Problems (1) Obesity (BMI 30-39.9) Code(s): E66.9 - OBESITY, UNSPECIFIED (2) Leukocytosis (leucocytosis) Code(s): D72.829 - ELEVATED WHITE BLOOD CELL COUNT, UNSPECIFIED Qualifiers: Qualified Code(s): D72.820 - Lymphocytosis (symptomatic) (3) Abdominal pain in female Code(s): R10.9 - UNSPECIFIED ABDOMINAL PAIN (4) Acute appendicitis Code(s): K35.80 - UNSPECIFIED ACUTE APPENDICITIS Qualifiers: Qualified Code(s): K35.3 - Acute appendicitis with localized peritonitis plan continue iv abx if patient remains stable will switch her to oral abx
--- NOTE | 2017-12-29 13:14 | PN ---
Progress Note, Physician Chief Complaint: abdominal pain History of Present Illness: 31 yo female with PMH obesity presents with 2 days of right lower quadrant abdominal pain. s/p laparoscopic appendectomy, no acute events overnight, febrile low grade 100, she feels well. has voided and is tolerating meals - Current Medication List Current Medications: Active Medications Acetaminophen (Ofirmev Injection -) 1,000 mg IVPB Q6H PRN PRN Reason: PAIN LEVEL 1-5 Last Admin: 12/28/17 21:26 Dose: 1,000 mg Docusate Sodium (Colace Liquid -) 100 mg PO DAILY PRN PRN Reason: CONSTIPATION Enoxaparin Sodium (Lovenox -) 40 mg SQ DAILY LUZ Last Admin: 12/29/17 11:03 Dose: Not Given Fentanyl (Sublimaze Injection -) 50 mcg IVPUSH [id number] PRN PRN Reason: PAIN-PACU ORDER X 4 DOSES ONLY Piperacillin Sod/Tazobactam (Sod 3.375 gm/ Dextrose) 50 mls @ 100 mls/hr IVPB Q8H-IV LUZ Last Admin: 12/29/17 11:03 Dose: 100 mls/hr Morphine Sulfate (Morphine Sulfate) 4 mg IVPUSH Q6H PRN PRN Reason: PAIN LEVEL 6-10 Ondansetron HCl (Zofran Injection) 4 mg IVPUSH Q4H PRN PRN Reason: NAUSEA AND/OR VOMITING - Objective Vital Signs: Vital Signs Temperature 98.4 F 12/29/17 06:00 Pulse Rate 60 12/29/17 06:00 Respiratory Rate 20 12/29/17 06:00 Blood Pressure 104/62 12/29/17 06:00 O2 Sat by Pulse Oximetry (%) 98 12/28/17 21:00 Constitutional: Yes: Well Nourished, No Distress, Calm Eyes: Yes: Conjunctiva Clear, EOM Intact HENT: Yes: Atraumatic, Normocephalic Neck: Yes: Supple, Trachea Midline Cardiovascular: Yes: Regular Rate and Rhythm, S1, S2 Respiratory: Yes: Regular, CTA Bilaterally Gastrointestinal: Yes: Normal Bowel Sounds, Soft, Abdomen, Obese, Tenderness ( minimal perimubilical) ...Rectal Exam: Yes: Deferred Wound/Incision: Yes: Clean/Dry, Dressing Dry and Intact Neurological: Yes: Alert, Oriented Psychiatric: Yes: Alert, Oriented Labs: CBC, BMP 12/29/17 06:30 12/28/17 06:00 INR, PTT INR 1.24 (0.82-1.09) H 12/28/17 06:00 Problem List - Problems (1) Obesity (BMI 30-39.9) Assessment/Plan: 31 yo female POD#2 s/p laparoscopic appendectomy, given signs of early bacterial translocation intraoperatively she should be treated as a perforation with a few days of IV antibiotics at least at the discretion of ID and primary team. wbc now normal 8.8 Vegan diet as tolerated ID consult for continued antibiotics f/u labs continue empiric IV antibiotics adequate analgesia OOB and ambulate incentive spirometry D/C home on antibiotics Code(s): E66.9 - OBESITY, UNSPECIFIED (2) Leukocytosis (leucocytosis) Code(s): D72.829 - ELEVATED WHITE BLOOD CELL COUNT, UNSPECIFIED Qualifiers: Leukocytosis type: lymphocytosis Qualified Code(s): D72.820 - Lymphocytosis (symptomatic) (3) Abdominal pain in female Code(s): R10.9 - UNSPECIFIED ABDOMINAL PAIN (4) Acute appendicitis Code(s): K35.80 - UNSPECIFIED ACUTE APPENDICITIS Qualifiers: Acute appendicitis type: with localized peritonitis Qualified Code(s): K35.3 - Acute appendicitis with localized peritonitis
--- NOTE | 2017-12-29 14:00 | PN ---
Teaching Attending Note Name of Resident: Liv Maher ATTENDING PHYSICIAN STATEMENT I saw and evaluated the patient. I reviewed the resident's note and discussed the case with the resident. I agree with the resident's findings and plan as documented. SUBJECTIVE:asymptomatic. wants to go home. tolerating regular diet. BM today. denies CP, SOB, fever, chills, N/V/C/D OBJECTIVE: Last Vital Signs Temp Pulse Resp BP Pulse Ox 98.4 F 60 20 104/62 98 12/29/17 06:00 12/29/17 06:00 12/29/17 06:00 12/29/17 06:00 12/28/17 21:00 General NAD Abdomen soft NT/ND surgical dressing c/d/i ASSESSMENT AND PLAN: 31 yo F with no PMH presented to the ER [facility] RLQ pain and found to have acute appendicitis 1. Sepsis due to acute appendicitis-s/p Lap appendectomy 12/27. resolved. tolerating regular diet. Cx negative. On zosyn day 2. will monitor till tomorrow. if remains afebrile and leukocytosis resolved can d/c in AM on augmentin for additioanl 7 days. can f/u [facility] gen surgery as outpatient. 2. Constipation- +BM today. cont stool softeners 3. Morbid obesity- lifestyle modifications. goal of 1lb per week weight loss. bariatric referal 4. DVT ppx- lovenox 5. plan for d/c in AM. pt verbalized understanding and agreement with plan
--- NOTE | 2017-12-29 17:18 | PN ---
Physical Exam: SUBJECTIVE: Patient seen and examined. She is walking on the hallway, felling good. She doesn't have any complaints, have normal bowel movements. She denies fever, chills. OBJECTIVE: Vital Signs Period Temp Pulse Resp BP Sys/Harris Pulse Ox Last 24 Hr 97.9 F-98.4 F 58-64 20-20 104-122/55-73 98-98 GENERAL: The patient is awake, alert, and fully oriented, in no acute distress. HEAD: Normal with no signs of trauma. EYES: extraocular movements intact, sclera anicteric, conjunctiva clear. ENT: oropharynx clear without exudates, moist mucous membranes. NECK: Trachea midline, full range of motion, supple. LUNGS: Breath sounds equal, clear to auscultation bilaterally, no wheezes, no crackles, no accessory muscle use. HEART: Regular rate and rhythm, S1, S2 without murmur, rub or gallop. ABDOMEN: Soft, mildly tender in all 4q, nondistended, normoactive bowel sounds, no guarding, no rebound, no hepatosplenomegaly, no masses. EXTREMITIES: 2+ pulses, no edema. NEUROLOGICAL: Normal speech, gait not observed. PSYCH: Normal mood, normal affect. SKIN: Warm, dry, normal turgor, no rashes, small dressings applied on her abdomen, no fluid draining. Laboratory Results - last 24 hr 12/29/17 06:30 WBC 12.5 H RBC 3.44 L Hgb 10.1 L Hct 30.4 L MCV 88.5 MCH 29.5 MCHC 33.4 RDW 13.5 Plt Count 272 MPV 9.3 Neutrophils % 79.9 Lymphocytes % 12.4 D Monocytes % 6.9 Eosinophils % 0.3 D Basophils % 0.5 D Active Medications Generic Name Dose Route Start Last Admin Trade Name Freq PRN Reason Stop Dose Admin Acetaminophen 1,000 mg 12/28/17 00:16 12/28/17 21:26 Ofirmev Injection - IVPB 1,000 mg Q6H PRN Administration PAIN LEVEL 1-5 Docusate Sodium 100 mg 12/28/17 06:26 Colace Liquid - PO DAILY PRN CONSTIPATION Enoxaparin Sodium 40 mg 12/28/17 10:00 12/29/17 11:03 Lovenox - SQ Not Given DAILY LUZ Fentanyl 50 mcg 12/27/17 22:39 Sublimaze Injection - IVPUSH [id number] PRN PAIN-PACU ORDER X 4 DOSES ONLY Piperacillin Sod/Tazobactam 50 mls @ 100 mls/hr 12/28/17 18:00 12/29/17 11:03 Sod 3.375 gm/ Dextrose IVPB 100 mls/hr Q8H-IV LUZ Administration Morphine Sulfate 4 mg 12/27/17 22:39 Morphine Sulfate IVPUSH Q6H PRN PAIN LEVEL 6-10 Ondansetron HCl 4 mg 12/28/17 00:17 Zofran Injection IVPUSH Q4H PRN NAUSEA AND/OR VOMITING ASSESSMENT/PLAN: 31 yo with no pmh presenting to ED with 2 days of abdominal distension and pain , localizing to RLQ, in the setting of subjective fevers for last two days. She is admitted for sepsis due to appendicitis. Acute appendicitis: -confirmed on CT scan -POD#2 - started on Zosyn todaY IS DAY 2, will continue Augumentin for 7 more days after discharge - Pain control, tylenol, morphine-the prt refuses, no more pain today - IVFs - f/u general surgery-Dr Marrero - indra for N/V Constipation -resolved Morbid obesity: -counselig about healthy lifestyle diet and exercise DVT PPX: -ambulating -Lovenox 40 mg qf FEN no normal vegetarian diet Disposition: discharge in the morning on Augumentin for a week. Problem List - Problems (1) Abdominal pain in female Code(s): R10.9 - UNSPECIFIED ABDOMINAL PAIN (2) Acute appendicitis Code(s): K35.80 - UNSPECIFIED ACUTE APPENDICITIS Qualifiers: Acute appendicitis type: with localized peritonitis Qualified Code(s): K35.3 - Acute appendicitis with localized peritonitis (3) Leukocytosis (leucocytosis) Code(s): D72.829 - ELEVATED WHITE BLOOD CELL COUNT, UNSPECIFIED Qualifiers: Leukocytosis type: lymphocytosis Qualified Code(s): D72.820 - Lymphocytosis (symptomatic) (4) Obesity (BMI 30-39.9) Code(s): E66.9 - OBESITY, UNSPECIFIED Visit type - Emergency Visit Emergency Visit: Yes ED Registration Date: 12/27/17 Care time: The patient presented to the Emergency Department on the above date and was hospitalized for further evaluation of their emergent condition. - New Patient This patient is new to me today: Yes Date on this admission: 12/29/17 - Critical Care Critical Care patient: No - Discharge Referral Referred to [facility] Med [facility].C.: No
[2017-12-29 17:44] LABS: BASO % 0.7 % (0-2.0); EOS % 0.7 % (0-4.5); HEMATOCRIT 30.2 % (32.4-45.2); HEMOGLOBIN 10.1 GM/dL (10.7-15.3); LYMPH % 18.7 % (8-40); MCH 29.6 pg (25.7-33.7); MCHC 33.5 g/dl (32.0-36.0); MEAN CELL VOLUME 88.5 fl (80-96); MEAN PLT VOLUME 9.9 fl (7.5-11.1); MONO % 8.3 % (3.8-10.2); NEUT % 71.6 % (42.8-82.8); PLATELET COUNT 272 K/MM3 (134-434); RBC 3.41 M/mm3 (3.60-5.2); RDW 13.6 % (11.6-15.6); WHITE BLOOD COUNT 8.8 K/mm3 (4.0-10.0)
[2017-12-29] MEDS: SODIUM CHLORIDE 1,000 ML IV SCH (18:42)
[2017-12-30] MEDS ORDERED: PT OWN MED DRAWER 7, Y5N ONE ×2 (02:27→09:03)
[2017-12-30] MEDS: PIPERACILLIN/TAZOB 3.375 GM 3.375 GM in DEXTROSE 5%-WATER - 50 ML IVPB SCH ×2 (02:49→09:06)
[2017-12-30 06:22] VITALS: BP 90/50; PULSE 55; TEMP 97.9
[2017-12-30] MEDS: ENOXAPARIN NA (PORCINE) 40 MG/0.4 ML DISP.SYRIN SQ SCH (09:07)
--- NOTE | 2017-12-30 13:24 | PN ---
Teaching Attending Note Name of Resident: Liv Maher ATTENDING PHYSICIAN STATEMENT I saw and evaluated the patient. I reviewed the resident's note and discussed the case with the resident. I agree with the resident's findings and plan as documented. SUBJECTIVE:asymptomatic. eager to go home. no cp, SOB, fever, chills OBJECTIVE: Last Vital Signs Temp Pulse Resp BP Pulse Ox 97.9 F 55 L 20 90/50 98 12/30/17 06:20 12/30/17 06:20 12/30/17 06:20 12/30/17 06:20 12/29/17 21:00 General NAD Abdomen soft NT/ND surgical dressing c/d/i ASSESSMENT AND PLAN: 31 yo F with no PMH presented to the ER wtih RLQ pain and found to have acute appendicitis 1. Sepsis due to acute appendicitis-s/p Lap appendectomy 12/27. resolved. tolerating regular diet. Cx negative. On zosyn day 3. will transition to augmentin to complete additional week. surgery follow up next week. 2. Constipation- +BM today. cont stool softeners 3. Morbid obesity- lifestyle modifications. goal of 1lb per week weight loss. bariatric referal 4. DVT ppx- lovenox 5. d/c home
--- NOTE | 2017-12-30 14:19 | DS ---
Physical Exam: SUBJECTIVE: Patient seen and examined. She is feeling much better today, denied abdominal pain. She reports bowel movements and passing gas. She denies fever, no overnight events. OBJECTIVE: Vital Signs Period Temp Pulse Resp BP Sys/Harris Pulse Ox Last 24 Hr 97.9 F-98.6 F 55-76 20-20 90-124/50-75 98 PHYSICAL EXAM GENERAL: The patient is awake, alert, and fully oriented, in no acute distress. HEAD: Normal with no signs of trauma. EYES: extraocular movements intact, sclera anicteric, conjunctiva clear. ENT: oropharynx clear without exudates, moist mucous membranes. NECK: Trachea midline, full range of motion, supple. LUNGS: Breath sounds equal, clear to auscultation bilaterally, no wheezes, no crackles, no accessory muscle use. HEART: Regular rate and rhythm, S1, S2 without murmur, rub or gallop. ABDOMEN: Soft, mild tenderness in mid abdomen, nondistended, normoactive bowel sounds, no guarding, no rebound, no hepatosplenomegaly, small 3 incisions post lap surgery, no drainage, no skin rash. EXTREMITIES: 2+ pulses, warm, no edema. NEUROLOGICAL: Cranial nerves II through XII grossly intact. Normal speech, normal gait. PSYCH: Normal mood, normal affect. SKIN: Warm, dry, normal turgor, no rashes or lesions noted. LABS Laboratory Results - last 24 hr 12/29/17 16:50 WBC 8.8 RBC 3.41 L Hgb 10.1 L Hct 30.2 L MCV 88.5 MCH 29.6 MCHC 33.5 RDW 13.6 Plt Count 272 MPV 9.9 Neutrophils % 71.6 Lymphocytes % 18.7 D Monocytes % 8.3 Eosinophils % 0.7 D Basophils % 0.7 HOSPITAL COURSE: Date of Admission:12/27/17 Date of Discharge: 12/30/17 Minutes to complete discharge: 40 Discharge Summary Reason For Visit: ACUTE APPENDICITIS Hospital Course: 31 yo with no pmh presented to the hospital complaining of 2 days of abdominal distension and pain, localizing to RLQ, in the setting of subjective fevers and chills. Pt endorsed constipation and decreased appetite for over past two days, took miralax with no resolution of symptoms. She also reported occasional nausea , but no episode of emesis. Denied EGAN, throat pain, nasal congestion, sinus pain , cp, sob, cough, rashes, peripheral edema, hematochezia, melena, diarrhea, hematuria. Endorsed occasional pain in abdomen with straining during urination. ER course was notable for: WBC 17.6, temp 100 F, CT abdomen/pelvis + for appendicitis without abscess formation, general surgery was consulted. Hospital course; The patient was admitted for sepsis due to appendicitis. She had lap appendectomy on 12/27/16, started on antibiotics: Zosyn, consulted infectious disease.She clinically improved, tolerated diet well, used incentive spirometer, we also controlled her pain. We discharged her home on Augumentin for 7 more days. We recommended follow up with a surgeon i 2 weeks and PCP in a week. Condition: Improved - Instructions Diet, Activity, Other Instructions: Postoperative instructions: You had a laparoscopic appendectomy on 12/27/[address] Paul Marrero of [facility]. Activity: Resume your usual activities gradually, but no heavy exertion or lifting more than 10-15 pounds for 1 month. Remove dressings 48 hours after surgery; sticky tapes underneath will fall off by themselves. You may shower daily starting then, just pat the incision areas dry. Eat lightly at first, but advance to your usual diet as tolerated. Pain: For pain, you may use and alternate Tylenol (acetaminophen) and/or ibuprofen every 6 hours each as needed; this means that you can take one OR the other at 3-hour intervals. If you are prescribed a Tylenol/narcotic combination for severe pain, use it instead of plain Tylenol as needed and switch back when your pain starts decreasing. Do not take more than 4000mg of acetaminophen in a day. Take medications as prescribed or indicated on the labeling. Follow-up: Call Dr. Marrero office at [phone] to make your postop appointment (Saturday ~2 weeks after surgery). Clinic is held in the [facility] on the first floor of [facility]. Also, see your primary medical doctor within 1-2 weeks. Medications: Please take Augumentin twice a day for a week. Call the office if you have: * increasing pain not responsive to pain medication * fever of 101F or higher * vomiting * unusual or increasing bleeding or drainage from wounds * increasing redness or swelling at wound sites * inability to urinate Referrals: Paul Marrero MD [Staff Physician] - 2 Weeks Yolette Atkins MD [Primary Care Provider] - 1 Week Disposition: HOME - Home Medications Comprehensive Discharge Medication List: Ambulatory Orders Amoxicillin/Potassium Clav [Augmentin 875-125 Tablet] 1 each PO BID #14 tablet 12/29/17 Problem List - Problems (1) Abdominal pain in female Code(s): R10.9 - UNSPECIFIED ABDOMINAL PAIN (2) Acute appendicitis Code(s): K35.80 - UNSPECIFIED ACUTE APPENDICITIS Qualifiers: Acute appendicitis type: with localized peritonitis Qualified Code(s): K35.3 - Acute appendicitis with localized peritonitis (3) Leukocytosis (leucocytosis) Code(s): D72.829 - ELEVATED WHITE BLOOD CELL COUNT, UNSPECIFIED Qualifiers: Leukocytosis type: lymphocytosis Qualified Code(s): D72.820 - Lymphocytosis (symptomatic) (4) Obesity (BMI 30-39.9) Code(s): E66.9 - OBESITY, UNSPECIFIED This patient is new to me today: No Emergency Visit: Yes ED Registration Date: 12/27/17 Care time: The patient presented to the Emergency Department on the above date and was hospitalized for further evaluation of their emergent condition. Critical Care patient: No - Discharge Referral Referred to [facility] No
--- NOTE | 2017-12-31 08:02 | OP ---
DATE OF OPERATION: 12/27/2017 PREOPERATIVE DIAGNOSIS: Acute appendicitis with localized peritonitis. POSTOPERATIVE DIAGNOSIS: Acute appendicitis with localized peritonitis. PROCEDURE: Laparoscopic appendectomy. ATTENDING SURGEON: Paul Marrero MD SUPERINTENDENT RADIO COMMUNICATIONS: None. ANESTHESIOLOGIST: Montrell Robledo MD ANESTHESIA TYPE: General endotracheal intubation with local. Local was 0.5% Marcaine, a total of 8 mL given at the port sites. SPECIMEN: Appendix. ESTIMATED BLOOD LOSS: 25 mL INTRAVENOUS FLUID GIVEN: 1200 mL DRAINS: Placed a Loving, 400 mL of urine. Loving was removed postoperatively. INDICATION: Patient is a 32-year-old female with history of obesity, presented with 2 days of right lower quadrant abdominal pain. She had lost her appetite, was having nausea with no vomiting. CAT scan revealed an inflamed appendix in the right lower quadrant extending towards the pelvis and midline. White count was more than 15. She was counseled regarding the need for appendectomy, signed informed consent after she was explained the risks, benefits, and alternatives to laparoscopic appendectomy, possible open. She had her questions answered to her satisfaction, and informed consent was placed on the chart to this effect. DESCRIPTION OF PROCEDURE: Patient was brought to the operating room, placed in supine position on the operating table with the left arm tucked and the right arm extended at 90 degrees perpendicular to the body's axis. Lower extremities had SCDs placed to a Venodyne machine. Patient was induced with general anesthesia, endotracheally intubated without incident by Anesthesia. We proceeded first with a formal timeout after sterile prep and drape of the anterior abdominal wall. Once complete with all parties in agreement, we started with a supraumbilical approach for a Gautam entry. An incision was scribed and then incised with 15-blade scalpel, deepened and widened through the subcutaneous tissue. Bovie cautery was used to dissect down to the anterior fascia between the rectus muscles. Once identified, they were elevated with Birgit clamps, and then, a standard entry made into the abdomen. With the field cleared with finger dissection, we proceeded then with placement of a 0 Vicryl in a figure-of-8 to lay in a stitch for ablation and closure of the anterior fascia. We then established a pneumoperitoneum with a 12-mm Gautam from the umbilicus. Once the pneumoperitoneum was established to 15 mmHg, we proceeded with insertion of the camera and inspection of the abdomen. There appeared to be no unintended trauma to any abdominal viscera. The patient was placed into a steep Trendelenburg to facilitate dissection of the appendix which was identified under the omentum once cleared. Additional 5-mm ports were placed at the suprapubic position as well as the left lower quadrant position. With graspers from these ports, the appendix was grasped and then retracted to facilitate dissection between its interface with the cecum. The cecum itself appeared to be slightly inflamed, and there was a peel adjacent on the wall, which appeared purulent. The appendix was dissected, and a plane was developed between the appendix and the mesoappendix at the base of the cecum. Once developed, the camera was re-sited to the left lower quadrant, and an Endo [place]ON size 60-mm stapler was inserted from the umbilical port and used to transect the base of the appendix at the cecum. The blue load was used to fire across the base of the appendix, which left the mesoappendix in place. The mesoappendix itself was identified and then transected with a white load 60 mm on the Endo NAPOLEON as well. Once transected, the appendix and mesoappendix was removed from the abdomen with an Endo Catch bag, size 10 mm. It was retrieved in its entirety, and the pneumoperitoneum was then re-established. The cecum itself was identified. Staple line appeared to be hemostatic. At which point, we proceeded then with irrigation of the site. A small amount of irrigation with the patient level was instilled and then suctioned from the abdomen. The pelvis was also suctioned of inflammatory serous fluid. The remaining trocars, 5 mm, were removed under direct visualization. There appeared to be no bleeding, and it was hemostatic at the skin. The pneumoperitoneum was relieved, and the umbilical Gautam entry was tied with 0 Vicryl. The skin was then closed with a running subcuticular 4-0 Vicryl. The skin was cleaned. Sterile dressings were placed. The patient was awoken in stable condition, having tolerated the procedure well. She was given instructions to follow up in a period of 2 weeks as her discharge was anticipated the next day. MD AGUILAR Andrade/[id number]
== END 2017-12-30 10:14 | disposition home or self-care (01) | DRG 225 ==
LOC: JER 14:31 → JERBED 17:57 → J8W 23:13
PROVIDERS: ADMIT Internal Medicine; ATTEND Internal Medicine
PROC: 0DTJ4ZZ Resection of Appendix, Percutaneous Endoscopic Approach (ICD-10-PCS; principal; 2017-12-27 20:00)
DX: K35.3 Acute appendicitis with localized peritonitis (principal); E66.01 Morbid (severe) obesity due to excess calories; Z68.36 Body mass index [BMI] 36.0-36.9, adult; K59.00 Constipation, unspecified
CPT/HCPCS: 36415; 74177-TC; 80053; 81003; 81015; 83690; 83735; 84100; 84703; 85025; 85610; 85730; 87040; 87086; 87186; 88304-TC; 94760; 99283-25; J0131; J7030

== ENCOUNTER 2018-05-12 11:38 | Emergency (ER) | payer OTHER ==
[2018-05-12 11:44] VITALS: BP 137/78; PULSE 65; TEMP 98.9; BMI 36.8
[2018-05-12] MEDS ORDERED: SODIUM CHLORIDE 0.9% 1000 ML INFUS.BAG IV ONE (11:47)
[2018-05-12] MEDS ORDERED: KETOROLAC TROMETHAMINE 30 MG/1 ML VIAL IVPUSH ONE (11:47)
[2018-05-12] MEDS ORDERED: KETOROLAC TROMETHAMINE 30 MG/1 ML VIAL ONE (12:02)
[2018-05-12 12:16] LABS: EOS % 3.8 % (0-4.5); HEMATOCRIT 35.6 % (32.4-45.2); HEMOGLOBIN 12.1 GM/dl (10.7-15.3); LYMPH % 26.7 % (8-40); MCH 29.4 pg (25.7-33.7); MCHC 34.1 g/dl (32.0-36.0); MONO % 7.1 % (3.8-10.2); NEUT % 61.4 % (42.8-82.8); PLATELET COUNT 332 K/MM3 (134-434); RBC 4.14 M/mm3 (3.60-5.2); RDW 12.9 % (11.6-15.6); WHITE BLOOD COUNT 6.9 K/mm3 (4.0-10.8)
[2018-05-12 12:29] LABS: HCG,QUALITATIVE URINE Negative
[2018-05-12 12:32] LABS: ALBUMIN 4.2 g/dl (3.5-5.0); ALK PHOS 79 U/L (32-92); ANION GAP 8 (8-16); BLOOD UREA NITROGEN 10 mg/dl (7-18); CALCIUM 9.4 mg/dl (8.4-10.2); CHLORIDE 104 mmol/L (98-107); CO2 24 mmol/L (22-28); CREATININE 0.6 mg/dl (0.6-1.3); GLUCOSE,RANDOM 88 mg/dl (74-106); POTASSIUM 3.8 mmol/L (3.5-5.1); SGOT/AST 21 U/L (10-42); SGPT/ALT 21 U/L (10-40); SODIUM 136 mmol/L (136-145); TOT PROT 7.3 g/dl (6.4-8.3)
[2018-05-12 12:33] LABS: BILIRUBIN,TOTAL < 0.3 mg/dl (0.2-1.0)
[2018-05-12 12:38] LABS: URINE APPEARANCE Clear; URINE BILIRUBIN Negative (NEGATIVE); URINE COLOR Yellow; URINE GLUCOSE (UA) Negative (NEGATIVE); URINE KETONE Negative (NEGATIVE); URINE LEUK ESTERASE Negative (NEGATIVE); URINE NITRITE Negative (NEGATIVE); URINE PROTEIN Negative (NEGATIVE); URINE UROBILINOGEN 0.2 (0.2-1.0)
--- NOTE | 2018-05-12 13:35 | PDOC ---
History of Present Illness - General Chief Complaint: Pain Stated Complaint: ABD PAIN Time Seen by Provider: 05/12/18 11:54 History Source: Patient Exam Limitations: No Limitations - History of Present Illness Initial Comments: 05/12/18 13:29 32-year-old female history past medical conditions here today complaining of right-sided abdominal pain and flank pain. Patient states her symptoms started 1 week ago has been intermittent no moderating factors radiates down to her groin she does have a prior appendectomy years ago. No known history of ovarian cysts states she is not no fevers no chills no urinary complaints no hematuria Past History - Past Medical History Allergies/Adverse Reactions: Allergies Allergy/AdvReac Type Severity Reaction Status Date / Time No Known Allergies Allergy Verified 05/12/18 11:39 Home Medications: Ambulatory Orders Simethicone [Gas-X] 125 mg PO ASDIR PRN 05/12/18 COPD: No - Surgical History Appendectomy: Yes - Reproductive History Is Patient Now?: No - Suicide/Smoking/Psychosocial Hx Smoking Status: No Smoking History: Never smoked Have you smoked in the past 12 months: No Number of Cigarettes Smoked Daily: 0 Information on smoking cessation initiated: No Hx Alcohol Use: (social) Drug/Substance Use Hx: No Substance Use Type: None Review of Systems - Review of Systems Constitutional: No: Chills, Diaphoresis, Fever Respiratory: No: Cough, Orthopnea Cardiac (ROS): No: Chest Pain Musculoskeletal: Yes: Back Pain. No: Gout, Joint Pain Integumentary: No: Bruising, Change in Color Neurological: No: Headache All Other Systems: Reviewed and Negative *Physical Exam - Vital Signs Last Vital Signs Temp Pulse Resp BP Pulse Ox 98.9 F 65 18 137/78 100 05/12/18 11:38 05/12/18 11:38 05/12/18 11:38 05/12/18 11:38 05/12/18 11:38 - Physical Exam General Appearance: Yes: Appropriately Dressed Neck: positive: Trachea midline Respiratory/Chest: positive: Lungs Clear, Normal Breath Sounds Cardiovascular: positive: Regular Rhythm, Regular Rate, S1, S2 Gastrointestinal/Abdominal: positive: Normal Bowel Sounds, Tender (ruq rlq ttp) . negative: Flat, Soft Musculoskeletal: positive: Normal Inspection, CVA Tenderness, CVA Tenderness (R) Extremity: positive: Normal Capillary Refill Integumentary: positive: Normal Color, Dry, Warm Neurologic: positive: Fully Oriented, Alert, Normal Mood/Affect ED Treatment Course - LABORATORY CBC & Chemistry Diagram: 05/12/18 12:00 05/12/18 12:00 - ADDITIONAL ORDERS Additional order review: Laboratory Results 05/12/18 05/12/18 12:00 12:00 Sodium 136 Potassium 3.8 Chloride 104 Carbon Dioxide 24 Anion Gap 8 BUN 10 Creatinine 0.6 Creat Clearance w eGFR > 60 Random Glucose 88 Calcium 9.4 Total Bilirubin < 0.3 AST 21 ALT 21 Alkaline Phosphatase 79 Total Protein 7.3 Albumin 4.2 Urine Color Yellow Urine Appearance Clear Urine pH 5.0 Ur Specific [place] 1.020 Urine Protein Negative Urine Glucose (UA) Negative Urine Ketones Negative Urine Blood Negative Urine Nitrite Negative Urine Bilirubin Negative Urine Urobilinogen 0.2 Ur Leukocyte Esterase Negative Urine HCG, Qual Negative 05/12/18 12:00 RBC 4.14 MCV 86.0 MCHC 34.1 RDW 12.9 MPV 9.0 Neutrophils % 61.4 Lymphocytes % 26.7 Monocytes % 7.1 Eosinophils % 3.8 Basophils % 1.0 - RADIOLOGY Radiology Studies Ordered: Category Date Time Status SPIRAL- RENAL-STONE CT [CT] Stat CT Scan 05/12/18 13:29 Ordered - Medications Given in the ED: ED Medications Discontinued Medications Generic Name Dose Route Start Last Admin Trade Name Freq PRN Reason Stop Dose Admin Ketorolac Tromethamine 30 mg 05/12/18 11:47 05/12/18 12:12 Toradol Injection - IVPUSH 05/12/18 11:48 Not Given ONCE ONE Sodium Chloride 1,000 ml 05/12/18 11:47 05/12/18 12:07 Normal Saline - IV 05/12/18 11:48 1,000 ml ONCE ONE Administration Medical Decision Making - Medical Decision Making 05/12/18 13:37 Differential diagnosis includes pyelonephritis, UTI, renal colic, ovarian cyst, cholelithiasis. Plan bedside ultrasound renal and right upper quadrant possible CT abdomen and pelvis UA basic labs. Patient declined pain medication. Focus ED ultrasound was extremely limited due to body habitus no appreciated hydro-or cholelithiasis. Plan CT abdomen and pelvis 05/12/18 14:54 CT abdomen and pelvis is unremarkable. Labs are normal UAs negative for UTI. Patient states she has seen her primary doctor for the same who recommended stool softeners. Instructed to return for fever or vomiting or any concerns will be given a referral for GI doctor Mp or Dr. Adams and DC home *DC/Admit/Observation/Transfer Diagnosis at time of Disposition: Abdominal pain - Discharge Dispostion Disposition: HOME Condition at time of disposition: Stable - Referrals Referrals: Yolette Atkins MD [Primary Care Provider] - Reva Prescott MD [Staff Physician] - - Patient Instructions Printed Discharge Instructions: Irritable Bowel Syndrome (Alternative Therapy) , DI for Abdominal Pain-Adult Additional Instructions: He should follow up with a object oriented programmer see the referral information for Dr. Gresham. Return for nausea vomiting fever or worsening symptoms or any concerns. Try MiraLAX and stool softeners as her primary doctor has recommended. Your CT abdomen and pelvis today was normal without any significant findings or lab work and urinalysis were all unremarkable. - Post Discharge Activity
== END 2018-05-12 15:20 | disposition home or self-care (01) ==
LOC: FER 11:38
PROC: 3E0337Z Introduction of Electrolytic and Water Balance Substance into Peripheral Vein, Percutaneous Approach (ICD-10-PCS; principal; 2018-05-12)
DX: R10.9 Unspecified abdominal pain (principal)
CPT/HCPCS: 36415; 74176; 80053; 81003; 84703; 85025; 87086; 99285-25; J7030